=== PATIENT | female | born 1995 | race Caucasian/White ===

== ENCOUNTER 2019-06-15 01:20 | Observation (INO) | payer OTHER ==
[~2019-06-15] VITALS: Ht 154.9 cm; Wt 89.8 kg
[2019-06-15] MEDS ORDERED: LACTATED RINGERS 1,000 ML IV SCH (02:15)
[2019-06-15] MEDS ORDERED: ACETAMINOPHEN 500MG TABLET PO SCH (02:15)
[2019-06-15 02:47] LABS: CLARITY URINE CLEAR (CLEAR); COLOR URINE YELLOW (YELLOW); KETONES URINE NEGATIVE (NEGATIVE); LEUKOCYTE ESTERASE URINE 2+ (NEGATIVE); NITRITE URINE NEGATIVE (NEGATIVE); OCCULT BLOOD URINE NEGATIVE (NEGATIVE); PH URINE 7.5 (4.5-8.0); PROTEIN URINE NEGATIVE (NEGATIVE); SPECIFIC GRAVITY URINE 1.007 (1.005-1.030); UROBILINOGEN URINE 0.2 E.U./dL (0.2-1.0)
[2019-06-15] MEDS ORDERED: PREN-57 PO (03:05)
[2019-06-15] MEDS ORDERED: FERR-71 PO (03:05)
[2019-06-15] MEDS ORDERED: CEFAZOLIN 1000MG PREMIX 50 ML IV SCH (04:30)
== END 2019-06-15 05:15 | disposition home or self-care (01) ==
LOC: 8 EST LDRP 01:20
PROVIDERS: ADMIT Obstetrics & Gynecology; ATTEND Obstetrics & Gynecology
DX: O26.893 Other specified pregnancy related conditions, third trimester (principal); R10.30 Lower abdominal pain, unspecified; O99.89 Other specified diseases and conditions complicating pregnancy, childbirth and the puerperium; M54.9 Dorsalgia, unspecified; Z3A.29 29 weeks gestation of pregnancy
CPT/HCPCS: 76805; 76818; 81003; 96365; 99281; G0378; J0690; 96360; 96361